=== PATIENT | female | born 1995 | race Caucasian/White ===

== ENCOUNTER 2017-11-04 08:13 | Emergency (ER) | payer BC ==
[2017-11-04 08:24] VITALS: RESP 16
[2017-11-04 09:10] LABS: Appearance,Urine Cloudy (Clear); Bacteria,Urine Rare /hpf; Bilirubin,Urine 1+ (Negative); Blood,Urine Trace (Negative); Color,Urine Yellow; Glucose,Urine (UA) Negative (Negative); Ketones,Urine 4+ (Negative); Leukocyte Esterase,Urine Large (Negative); Mucus,Urine Many /hpf; Nitrite,Urine Negative (Negative); PH, Urine 6.5 (5.0-8.0); Protein,Urine 1+ (Negative); RBC,Urine 5 /hpf (0-5); Specific Gravity,Urine 1.031 (1.001-1.035); Squamous Epithelial Cell,Urine 7 /hpf (0-4); WBC,Urine 7 /hpf (0-5)
--- NOTE | 2017-11-04 09:34 | ED ---
Abdominal Pain HPI - General Chief Complaint: Abdominal Pain Stated Complaint: Female Time Seen by Provider: 11/04/17 08:30 Source: patient, RN notes reviewed Mode of arrival: ambulatory Limitations: no limitations - History of Present Illness Initial Comments: This a 22-year-old female presents emergency Department chief complaint of dysuria and concerns of IUD displacement Patient states that she was having sexual course for nights ago states that she developed some discomfort and states that she is concerned that her IUD might have moved. She complains of left lower quadrant abdominal pain. Denies any rectal bleeding, melena, or constipation this time. Patient states she did have diarrhea the other day she did have some nausea vomiting but the vomiting. States that she is able tolerate oral intake at this time. Patient denies any known fever states that she had some chills but had resolved. Patient denies any chest pain, shortness breath, upper abdominal pain, headache or dizziness. No sick contacts. - Related Data Previous Rx's Medication Instructions Recorded Ciprofloxacin HCl [Cipro] 500 mg PO Q12HR #14 tablet 11/04/17 Ibuprofen [Motrin] 600 mg PO Q8HR PRN #30 tab 11/04/17 Ondansetron Odt [Zofran Odt] 4 mg PO Q8HR PRN #10 tab 11/04/17 Allergies Allergy/AdvReac Type Severity Reaction Status Date / Time No Known Allergies Allergy Verified 11/04/17 08:24 Review of Systems ROS Statement: Those systems with pertinent positive or pertinent negative responses have been documented in the HPI. ROS Other: All systems not noted in ROS Statement are negative. Past Medical History Past Medical History: No Reported History History of Any Multi-Drug Resistant Organisms: None Reported Past Surgical History: No Surgical Hx Reported Past Psychological History: No Psychological Hx Reported Smoking Status: Current every day smoker Past Alcohol Use History: None Reported Past Drug Use History: None Reported General Exam Limitations: no limitations General appearance: alert, in no apparent distress Head exam: Present: atraumatic, normocephalic, normal inspection Eye exam: Present: normal appearance, PERRL, EOMI. Absent: scleral icterus, conjunctival injection, periorbital swelling Respiratory exam: Present: normal lung sounds bilaterally. Absent: respiratory distress, wheezes, rales, rhonchi, stridor Cardiovascular Exam: Present: regular rate, normal rhythm, normal heart sounds. Absent: systolic murmur, diastolic murmur, rubs, gallop, clicks GI/Abdominal exam: Present: soft, tenderness (Mild left lower quadrant, suprapubic tenderness), normal bowel sounds. Absent: distended, guarding, rebound, rigid Back exam: Absent: CVA tenderness (R), CVA tenderness (L) Skin exam: Present: warm, dry, intact, normal color. Absent: rash Course Vital Signs 11/04/17 08:22 Temperature 98.4 F Pulse Rate 100 Respiratory 16 Rate Blood Pressure 116/60 O2 Sat by Pulse 99 Oximetry Medical Decision Making - Medical Decision Making 22-year-old female presented for pelvic pain. Patient concerned that her IUD removed. All son confirms placement of IUD. Patient has bacteria, mucus and leukocytes. Patient treated for urinary tract infection. She does have 4+ ketones though she is orally hydrated in the room with no difficulty. Patient will be discharged with antiemetics if needed. - Lab Data Lab Results 11/04/17 11/04/17 Range/Units 08:48 08:48 Urine Color Yellow Urine Appearance Cloudy H (Clear) Urine pH 6.5 (5.0-8.0) Ur Specific [place] 1.031 (1.001-1.035) Urine Protein 1+ H (Negative) Urine Glucose (UA) Negative (Negative) Urine Ketones 4+ H (Negative) Urine Blood Trace H (Negative) Urine Nitrite Negative (Negative) Urine Bilirubin 1+ H (Negative) Urine Urobilinogen 6.0 (<2.0) mg/dL Ur Leukocyte Esterase Large H (Negative) Urine RBC 5 (0-5) /hpf Urine WBC 7 H (0-5) /hpf Ur Squamous Epith Cells 7 H (0-4) /hpf Urine Bacteria Rare H (None) /hpf Urine Mucus Many H (None) /hpf Urine HCG, Qual Not Detected (Not Detectd) Disposition Clinical Impression: UTI (urinary tract infection), Pelvic pain, Nausea & vomiting Disposition: HOME SELF-CARE Condition: Stable Instructions: Urinary Tract Infection in Women (ED) Additional Instructions: Please return to the Emergency Department if symptoms worsen or any other concerns. Prescriptions: Ciprofloxacin HCl [Cipro] 500 mg PO Q12HR #14 tablet Ibuprofen [Motrin] 600 mg PO Q8HR PRN #30 tab PRN Reason: Pain Ondansetron Odt [Zofran Odt] 4 mg PO Q8HR PRN #10 tab PRN Reason: Nausea Is patient prescribed a controlled substance at d/c from ED?: No Referrals: Gale Buchanan MD [Primary Care Provider] - 1-2 days Time of Disposition: 09:51
--- NOTE | 2017-11-04 09:42 | US ---
EXAMINATION TYPE: US pelvis complete transvag DATE OF EXAM: 11/04/2017 COMPARISON: Previous study dated 10/13/2009. CLINICAL HISTORY: Pain. Intermittent pelvic pain x 4 days, N/V x 2 days, patient has IUD, 0 TECHNIQUE: Transvaginal ER study. Date of LMP: 10/26/2017 EXAM MEASUREMENTS: Uterus: 8.2 x 3.8 x 5.2 cm Endometrial Stripe: 0.5 cm Right Ovary: 3.7 x 2.7 x 2.1 cm Left Ovary: 4.3 x 2.2 x 2.6 cm 1. Uterus: anteverted, wnl 2. Endometrium: wnl for patient's LMP, IUD appears in place 3. Right Ovary: multiple follicles 4. Left Ovary: multiple follicles Spectral, color and waveform doppler imaging shows good arterial and venous flow within the ovaries ; there is no evidence for ovarian torsion. 5. Bilateral Adnexa: wnl 6. Posterior cul-de-sac: wnl IMPRESSION: NORMAL PELVIC ULTRASOUND.
[2017-11-04 10:08] VITALS: BP 112/53; PULSE 89; TEMP 98.6
== END 2017-11-04 10:08 | disposition home or self-care (01) ==
LOC: EC 08:13
DX: N39.0 Urinary tract infection, site not specified (principal); R11.2 Nausea with vomiting, unspecified; F17.200 Nicotine dependence, unspecified, uncomplicated
CPT/HCPCS: 76830; 81001; 81025; 87086; 93975; 99284

== ENCOUNTER 2019-03-15 20:40 | Emergency (ER) | payer BC ==
[2019-03-15 21:15] VITALS: RESP 18
[2019-03-15 22:04] LABS: Glucose,Whole Blood 103 mg/dL (75-99)
[2019-03-15] MEDS ORDERED: SODIUM CHLORIDE 0.9% 1,000 ML IV STA (23:00)
[2019-03-15 23:25] LABS: Basophils # (A) 0.1 k/uL (0-0.2); Basophils % (A) 1 %; Eosinophils # (A) 0.4 k/uL (0-0.7); Eosinophils % (A) 3 %; HCT 40.7 % (34.0-46.0); HGB 13.7 gm/dL (11.4-16.0); Lymphocytes # (A) 3.4 k/uL (1.0-4.8); Lymphocytes % (A) 27 %; MCH 30.2 pg (25.0-35.0); MCHC 33.8 g/dL (31.0-37.0); MCV 89.4 fL (80.0-100.0); Mean Platelet Volume 7.8; Monocytes # (A) 0.7 k/uL (0-1.0); Monocytes % (A) 5 %; Neutrophils # (A) 7.8 k/uL (1.3-7.7); Neutrophils % (A) 62 %; Platelet Count 330 k/uL (150-450); RBC 4.55 m/uL (3.80-5.40); RDW 13.2 % (11.5-15.5); WBC 12.6 k/uL (3.8-10.6)
[2019-03-15 23:26] LABS: Appearance,Urine Clear (Clear); Bilirubin,Urine Negative (Negative); Blood,Urine Negative (Negative); Color,Urine Yellow; Glucose,Urine (UA) Negative (Negative); Ketones,Urine Negative (Negative); Leukocyte Esterase,Urine Negative (Negative); Nitrite,Urine Negative (Negative); PH, Urine 5.5 (5.0-8.0); Protein,Urine Trace (Negative)
--- NOTE | 2019-03-15 23:45 | CT ---
EXAMINATION TYPE: CT brain wo con DATE OF EXAM: 03/15/2019 COMPARISON: None HISTORY: possible seizure CT DLP: 1090.4 mGycm. Automated Exposure Control for Dose Reduction was Utilized. TECHNIQUE: CT scan of the head is performed without contrast. FINDINGS: Ventricles and sulci appear normal. There is no mass effect nor midline shift. There is no sign of intracranial hemorrhage. Calvarium is intact. There is no sign of cerebral edema. IMPRESSION: Negative CT scan of the brain.
[2019-03-15 23:49] LABS: Amphetamine Screen,Urine Not Detected (NotDetected); Barbiturate Screen,Urine Not Detected (NotDetected); Benzodiazepines Screen,Urine Not Detected (NotDetected); Cocaine Screen,Urine Not Detected (NotDetected); Methadone Screen, Urine Not Detected (NotDetected); Opiate Screen,Urine Not Detected (NotDetected); Oxycodone Screen, Urine Not Detected (NotDetected); Phencyclidine Screen,Urine Not Detected (NotDetected); Tricyclic Antidepressant,Urine Not Detected (NotDetected); Urn Cannabinoid Scrn Detected (NotDetected)
[2019-03-16 00:14] LABS: ALT 14 U/L (9-52); AST 27 U/L (14-36); African American GFR (CKD) >90 (>60 ml/min/1.73 sqM); Albumin 4.2 g/dL (3.5-5.0); Alcohol <10 mg/dL; Alkaline Phosphatase 48 U/L (38-126); Anion Gap 13 mmol/L; Blood Urea Nitrogen 17 mg/dL (7-17); Calcium 9.1 mg/dL (8.4-10.2); Carbon Dioxide 24 mmol/L (22-30); Chloride 101 mmol/L (98-107); Creatine Kinase 72 U/L (30-135); Glucose 100 mg/dL (74-99); Potassium 4.1 mmol/L (3.5-5.1); Sodium 138 mmol/L (137-145); Total Bilirubin 0.3 mg/dL (0.2-1.3); Total Protein 7.2 g/dL (6.3-8.2)
--- NOTE | 2019-03-16 01:04 | ED ---
General Adult HPI - General Chief complaint: Seizure Stated complaint: Poss Seizure Source: patient Mode of arrival: ambulatory Limitations: no limitations - History of Present Illness Initial comments: The patient is a 23-year-old female with no past medical history who presents emergency Department with possible seizure-like activity earlier today. The patient states that she was with a friend. She reports that she started feeling "funny". Friend then reports that her eyes rolled back in her head and she became unresponsive. She had full tonic-clonic shaking. This lasted for approximately 2 minutes. Incident happened at 2:45 PM. The patient was then somewhat confused returned to her normal baseline fairly quickly. The patient denies having headaches or visual changes. There is no confusion or slurred speech from the patient. She denies any chest pain, chest palpitations or shortness of breath. She denies a possibility been . Has had no abdominal pain or changes in her bowel or bladder habits. There is no incontinence. The patient did not bite her tongue. No recent blunt head trauma or chiropractic manipulations. The patient did report that when she came to she and so he had an episode of vomiting. Since then she has been able to hold down her food. No report of any neck pain or stiffness. No fevers or chills. EMS was called and proceeded to the front house however the patient then ended up calling back and calling them off. She then went to her house and fell asleep. When she awoke she did feel that it was in her best interest to get evaluated even though she is a symptomatic at this time. No history of seizures in the past. There are no other alleviating, Perceptin or modifying factors - Related Data Previous Rx's Medication Instructions Recorded Ibuprofen [Motrin] 600 mg PO Q8HR PRN #30 tab 11/04/17 Allergies Allergy/AdvReac Type Severity Reaction Status Date / Time No Known Allergies Allergy Verified 03/15/19 22:13 Review of Systems ROS Statement: Those systems with pertinent positive or pertinent negative responses have been documented in the HPI. ROS Other: All systems not noted in ROS Statement are negative. Past Medical History Past Medical History: No Reported History History of Any Multi-Drug Resistant Organisms: None Reported Past Surgical History: No Surgical Hx Reported Past Psychological History: No Psychological Hx Reported Smoking Status: Current every day smoker Past Alcohol Use History: Daily Past Drug Use History: Marijuana General Exam Limitations: no limitations Course Vital Signs 03/15/19 03/15/19 03/16/19 21:10 21:14 01:40 Temperature 98.1 F 98.1 F 98 F Pulse Rate 68 64 70 Respiratory 18 18 18 Rate Blood Pressure 105/59 125/60 116/69 O2 Sat by Pulse 99 100 97 Oximetry EKG Findings - EKG Comments: EKG Findings:: EKG demonstrates a sinus bradycardia with a ventricular rate of 52.. 152. QRS E4. QTC 422. There are no acute ST segment elevations or depr essions concerning for ischemic changes. No signs of Tcujn-Oqcugboeq-Oskyo or Brugada syndrome. Medical Decision Making - Medical Decision Making Upon arrival the patient is placed into room 18. She is hooked up to continuous pulse ox and cardiac monitoring. A thorough history and physical exam was performed. Peripheral IV was established. The patient was given a liter bolus of 0.9% normal saline. Laboratory studies were conducted the patient was sent for CT of her brain. Laboratory studies remarkable for white blood count of 12.6. Glucose is 103. Trace protein in the urine. Positive for THC. CT of the brain does not demonstrate any acute findings. These results are discussed the patient. She has had no further seizure-like activity while in the emergency room. I did discuss diagnosis, differential and treatment options. At this time the patient will be discharged home. She is to not work or drive until evaluated by her primary care physician. I informed her that because of the history she may have new onset seizures which will require an MRI and an EEG. I did provide her with follow-up information for Dr. Alamo. The patient has any new or worsening symptoms she should return to the emergency room. The patient was in agreement with the treatment plan and she was discharged home in stable condition - Lab Data Result diagrams: 03/15/19 22:19 03/15/19 22: Lab Results 03/15/19 03/15/19 03/15/19 Range/Units 22:02 22: 22: WBC 12.6 H (3.8-10.6) k/uL RBC 4.55 (3.80-5.40) m/uL Hgb 13.7 (11.4-16.0) gm/dL Hct 40.7 (34.0-46.0) % MCV 89.4 (80.0-100.0) fL MCH 30.2 (25.0-35.0) pg MCHC 33.8 (31.0-37.0) g/dL RDW 13.2 (11.5-15.5) % Plt Count 330 (150-450) k/uL Neutrophils % 62 % Lymphocytes % 27 % Monocytes % 5 % Eosinophils % 3 % Basophils % 1 % Neutrophils # 7.8 H (1.3-7.7) k/uL Lymphocytes # 3.4 (1.0-4.8) k/uL Monocytes # 0.7 (0-1.0) k/uL Eosinophils # 0.4 (0-0.7) k/uL Basophils # 0.1 (0-0.2) k/uL Sodium 138 (137-145) mmol/L Potassium 4.1 (3.5-5.1) mmol/L Chloride 101 (98-107) mmol/L Carbon Dioxide 24 (22-30) mmol/L Anion Gap 13 mmol/L BUN 17 (7-17) mg/dL Creatinine 0.67 (0.52-1.04) mg/dL Est GFR (CKD-EPI)AfAm >90 (>60 ml/min/1.73 sqM) Est GFR (CKD-EPI)NonAf >90 (>60 ml/min/1.73 sqM) Glucose 100 H (74-99) mg/dL POC Glucose (mg/dL) 103 H (75-99) mg/dL POC Glu Major Gifts Officer ID Desirae Deras Plasma Lactic Acid Luiz (0.7-2.0) mmol/L Calcium 9.1 (8.4-10.2) mg/dL Total Bilirubin 0.3 (0.2-1.3) mg/dL AST 27 (14-36) U/L ALT 14 (9-52) U/L Alkaline Phosphatase 48 (38-126) U/L Creatine Kinase 72 (30-135) U/L Total Protein 7.2 (6.3-8.2) g/dL Albumin 4.2 (3.5-5.0) g/dL Urine Color Urine Appearance (Clear) Urine pH (5.0-8.0) Ur Specific [place] (1.001-1.035) Urine Protein (Negative) Urine Glucose (UA) (Negative) Urine Ketones (Negative) Urine Blood (Negative) Urine Nitrite (Negative) Urine Bilirubin (Negative) Urine Urobilinogen (<2.0) mg/dL Ur Leukocyte Esterase (Negative) Urine HCG, Qual (Not Detectd) Urine Opiates Screen (NotDetected) Ur Oxycodone Screen (NotDetected) Urine Methadone Screen (NotDetected) Ur Propoxyphene Screen (NotDetected) Ur Barbiturates Screen (NotDetected) U Tricyclic Antidepress (NotDetected) Ur Phencyclidine Scrn (NotDetected) Ur Amphetamines Screen (NotDetected) U Methamphetamines Scrn (NotDetected) U Benzodiazepines Scrn (NotDetected) Urine Cocaine Screen (NotDetected) U Marijuana (THC) Screen (NotDetected) Serum Alcohol <10 mg/dL 03/15/19 03/15/19 03/15/19 Range/Units 22:19 23:10 23:10 WBC (3.8-10.6) k/uL RBC (3.80-5.40) m/uL Hgb (11.4-16.0) gm/dL Hct (34.0-46.0) % MCV (80.0-100.0) fL MCH (25.0-35.0) pg MCHC (31.0-37.0) g/dL RDW (11.5-15.5) % Plt Count (150-450) k/uL Neutrophils % % Lymphocytes % % Monocytes % % Eosinophils % % Basophils % % Neutrophils # (1.3-7.7) k/uL Lymphocytes # (1.0-4.8) k/uL Monocytes # (0-1.0) k/uL Eosinophils # (0-0.7) k/uL Basophils # (0-0.2) k/uL Sodium (137-145) mmol/L Potassium (3.5-5.1) mmol/L Chloride (98-107) mmol/L Carbon Dioxide (22-30) mmol/L Anion Gap mmol/L BUN (7-17) mg/dL Creatinine (0.52-1.04) mg/dL Est GFR (CKD-EPI)AfAm (>60 ml/min/1.73 sqM) Est GFR (CKD-EPI)NonAf (>60 ml/min/1.73 sqM) Glucose (74-99) mg/dL POC Glucose (mg/dL) (75-99) mg/dL POC Glu Major Gifts Officer ID Plasma Lactic Acid Luiz 1.6 (0.7-2.0) mmol/L Calcium (8.4-10.2) mg/dL Total Bilirubin (0.2-1.3) mg/dL AST (14-36) U/L ALT (9-52) U/L Alkaline Phosphatase (38-126) U/L Creatine Kinase (30-135) U/L Total Protein (6.3-8.2) g/dL Albumin (3.5-5.0) g/dL Urine Color Yellow Urine Appearance Clear (Clear) Urine pH 5.5 (5.0-8.0) Ur Specific [place] 1.030 (1.001-1.035) Urine Protein Trace H (Negative) Urine Glucose (UA) Negative (Negative) Urine Ketones Negative (Negative) Urine Blood Negative (Negative) Urine Nitrite Negative (Negative) Urine Bilirubin Negative (Negative) Urine Urobilinogen 2.0 (<2.0) mg/dL Ur Leukocyte Esterase Negative (Negative) Urine HCG, Qual Not Detected (Not Detectd) Urine Opiates Screen Not Detected (NotDetected) Ur Oxycodone Screen Not Detected (NotDetected) Urine Methadone Screen Not Detected (NotDetected) Ur Propoxyphene Screen Not Detected (NotDetected) Ur Barbiturates Screen Not Detected (NotDetected) U Tricyclic Antidepress Not Detected (NotDetected) Ur Phencyclidine Scrn Not Detected (NotDetected) Ur Amphetamines Screen Not Detected (NotDetected) U Methamphetamines Scrn Not Detected (NotDetected) U Benzodiazepines Scrn Not Detected (NotDetected) Urine Cocaine Screen Not Detected (NotDetected) U Marijuana (THC) Screen Detected H (NotDetected) Serum Alcohol mg/dL Disposition Clinical Impression: Seizure Disposition: HOME SELF-CARE Condition: Stable Instructions (If sedation given, give patient instructions): New-Onset Seizure in Adults (ED) Additional Instructions: Please not drive or participate in any extreme activities/sports. You must follow-up with your primary care doctor for further evaluation. You may need to be evaluated by a neurologist and/or chipper feeder. Return to the emergency room for any new or worsening symptoms Is patient prescribed a controlled substance at d/c from ED?: No Referrals: None,Stated [Primary Care Provider] - 1-2 days Kareen Isaacs MD [STAFF PHYSICIAN] - 1-2 days Time of Disposition: 01:03
[2019-03-16 01:41] VITALS: BP 116/69; PULSE 70; TEMP 98
== END 2019-03-16 01:41 | disposition home or self-care (01) ==
LOC: EC 20:40
DX: R56.9 Unspecified convulsions (principal); Z32.02 Encounter for pregnancy test, result negative; F17.200 Nicotine dependence, unspecified, uncomplicated
CPT/HCPCS: 36415; 70450; 80053; 80306; 80320; 81003; 81025; 82550; 83605; 85025; 93005; 96360; 99285

== ENCOUNTER 2019-05-18 17:31 | Emergency (ER) | payer BC ==
--- NOTE | 2019-05-18 18:23 | ED ---
General Adult HPI - General Chief complaint: ENT Stated complaint: Throat Pain Time Seen by Provider: 05/18/19 17:43 Source: patient, RN notes reviewed, old records reviewed Mode of arrival: ambulatory Limitations: no limitations - History of Present Illness Initial comments: 23-year-old female patient presents to ED for chief complaint of submandibular lymphadenopathy, mildly sore throat. Patient reports this started yesterday. Denies any other complaints at this time. Systemic: Pt denies fatigue, fever/chills, rash. Pt denies weakness, night sweat s, weight loss. Neuro: Pt denies headache, visual disturbances, syncope or pre-syncope. HEENT: Pt denies ocular discharge or irritation, otalgia, rhinorrhea. Cardiopulmonary: Pt denies chest pain, SOB, heart palpitations, dyspnea on exertion. Abdominal/GI: Pt denies abdominal pain, n/v/d. : Pt denies dysuria, burning w/ urination, frequency/urgency. Denies new onset urinary or bowel incontinence. MSK: Pt denies myalgia, loss of strength or function in extremities. Neuro: Pt denies new onset weakness, paresthesias. - Related Data Previous Rx's Medication Instructions Recorded Ibuprofen [Motrin] 600 mg PO Q8HR PRN #30 tab 11/04/17 Cephalexin [Keflex] 500 mg PO Q6HR 7 Days #28 cap 05/18/19 Allergies Allergy/AdvReac Type Severity Reaction Status Date / Time No Known Allergies Allergy Verified 03/15/19 22:13 Review of Systems ROS Statement: Those systems with pertinent positive or pertinent negative responses have been documented in the HPI. ROS Other: All systems not noted in ROS Statement are negative. Past Medical History Past Medical History: No Reported History History of Any Multi-Drug Resistant Organisms: None Reported Past Surgical History: No Surgical Hx Reported Past Psychological History: No Psychological Hx Reported Smoking Status: Current every day smoker Past Alcohol Use History: Daily Past Drug Use History: Marijuana General Exam - General Exam Comments Initial Comments: Constitutional: NAD, AOX3, Pt has pleasant affect. HEENT: NC/AT, trachea midline, neck supple, tender submandibular lymphadenopathy noted, no skin changes externally.. Posterior pharynx non erythematous, without exudates. External ears appear normal, without discharge. Mucous membranes moist. Eyes PERRLA, EOM intact. There is no scleral icterus. No pallor noted. Cardiopulmonary: RRR, no murmurs, rubs or gallops, no JVD noted. Lungs CTAB in anterior and posterior watts. No peripheral edema. Abdominal exam: Abdomen soft and non-distended. Abdomen non-tender to palpation in all 4 quadrants. Bowel sounds active in LLQ. No hepatosplenomegaly. No ecchymosis Neuro: CN II-XII grossly intact. No nuchal rigidity. No raccon eyes, no lewis sign, no hemotympanum. No cervical spinal tenderness. MSK: No posterior calf tenderness bilaterally, homans sign negative bilaterally. Posterior tibialis and radial pulse +2 bilaterally. Sensation intact in upper and lower extremities. Full active ROM in upper and lower extremities, 5/5 stregnth. Limitations: no limitations Course Vital Signs 05/18/19 17:33 Temperature 98.0 F Pulse Rate 94 Respiratory 18 Rate Blood Pressure 120/80 O2 Sat by Pulse 98 Oximetry Medical Decision Making - Medical Decision Making 33-year-old female patient presents to ED for chief complaint of some and really lymphadenopathy. Reports this started last night. Patient was worse mild sore throat. Physical exam displayed some vertebral lymphadenopathy. Posterior pharynx non-erythematous. The Hardeman negative. Heterophile negative. Patient will be treated with antibiotics for possible lymphadenitis. We'll have close outpatient follow-up to ensure resolution of inflamed lymph nodes. Will turn your condition worsens. Case discussed with Dr. Milligan. - Lab Data Lab Results 05/18/19 05/18/19 Range/Units 17:57 18:45 Heterophile Antibody Negative (Negative) Group A Strep Rapid Negative (Negative) Disposition Clinical Impression: Lymphadenitis Disposition: HOME SELF-CARE Condition: Stable Instructions (If sedation given, give patient instructions): Adenitis (ED) Additional Instructions: Follow-up with primary care provider tomorrow. Take antibiotics as directed. Return to ER if condition worsens. Prescriptions: Cephalexin [Keflex] 500 mg PO Q6HR 7 Days #28 cap Is patient prescribed a controlled substance at d/c from ED?: No Referrals: None,Stated [Primary Care Provider] - 1-2 days [facility] [NON-STAFF] - 1-2 days
[2019-05-18] MEDS ORDERED: CEPHALEXIN 500MG STARTER PACK 4 CAP BTL PO STA (19:35)
[2019-05-18] MEDS ORDERED: CEPHALEXIN 500 MG CAP PO STA (19:35)
[2019-05-18 19:50] VITALS: BP 116/74; PULSE 91; RESP 16; TEMP 98.1
== END 2019-05-18 19:49 | disposition home or self-care (01) ==
LOC: EC 17:31
DX: I88.9 Nonspecific lymphadenitis, unspecified (principal); F17.200 Nicotine dependence, unspecified, uncomplicated
CPT/HCPCS: 36415; 86308; 87081; 87430; 99283

== ENCOUNTER → 2020-05-07 | Outpatient (CLI) | payer BC ==
[2020-05-07 08:49] LABS: HCT 31.4 % (34.0-46.0); HGB 10.5 gm/dL (11.4-16.0); MCH 29.5 pg (25.0-35.0); MCHC 33.4 g/dL (31.0-37.0); MCV 88.4 fL (80.0-100.0); Platelet Count 236 k/uL (150-450); RBC 3.55 m/uL (3.80-5.40); RDW 12.6 % (11.5-15.5); WBC 11.3 k/uL (3.8-10.6)
== END | disposition home or self-care (01) ==
LOC: LABWHC1 07:09
PROVIDERS: ATTEND Obstetrics & Gynecology
DX: Z34.02 Encounter for supervision of normal first pregnancy, second trimester (principal); Z3A.00 Weeks of gestation of pregnancy not specified
CPT/HCPCS: 36415; 82950; 85027

== ENCOUNTER 2020-07-16 06:00 | Inpatient (IN) | payer BC, OTHER ==
[2020-07-16] MEDS ORDERED: LIDOCAINE 0.5% (PF) 5 MG/ML (50 ML SDV) SQ PRN (06:28)
[2020-07-16] MEDS ORDERED: METHYLERGONOVINE 0.2 MG/ML 1 ML AMP IM PRN (06:28)
[2020-07-16] MEDS ORDERED: AMPICILLIN 2,000 MG in SODIUM CHLORIDE 0.9% 100 ML IVPB STA (06:28)
[2020-07-16] MEDS ORDERED: CARBOPROST TROMETHAMINE 250 MCG/ML 1 ML AMP IM PRN (06:28)
[2020-07-16] MEDS ORDERED: OXYTOCIN 10 UNIT/ML 1 ML VIAL IM PRN (06:28)
[2020-07-16] MEDS ORDERED: TERBUTALINE 1 MG/ML VIAL SQ PRN (06:28)
[2020-07-16] MEDS ORDERED: OXYTOCIN 30 UNITS/500 ML NS 30 UNIT in SALINE 1 500ML.BAG IV SCH ×2 (06:30→20:15)
[2020-07-16] MEDS: LACTATED RINGERS 1,000 ML IV SCH ×3 (07:03→14:57)
[2020-07-16 07:23] LABS: Basophils # (A) 0.1 k/uL (0-0.2); Basophils % (A) 1 %; Eosinophils # (A) 0.2 k/uL (0-0.7); Eosinophils % (A) 2 %; HCT 35.1 % (34.0-46.0); HGB 11.7 gm/dL (11.4-16.0); Lymphocytes # (A) 1.9 k/uL (1.0-4.8); Lymphocytes % (A) 18 %; MCHC 33.4 g/dL (31.0-37.0); MCV 83.7 fL (80.0-100.0); Mean Platelet Volume 11.9; Monocytes # (A) 0.5 k/uL (0-1.0); Monocytes % (A) 5 %; Neutrophils % (A) 75 %; Platelet Count 155 k/uL (150-450); RBC 4.19 m/uL (3.80-5.40); WBC 10.8 k/uL (3.8-10.6)
[2020-07-16 07:55] LABS: Large Platelets Present
--- NOTE | 2020-07-16 08:20 | P.HPOB ---
History of Present Illness H&P Date: 07/16/20 Chief Complaint: Induction of labor 24-year-old presents at 39 weeks for induction of labor. Her cervix is 3 cm dilated, 80% effaced, and -2 station. She is yvon irregularly. heart tones 135 with moderate variability and reactive. Review of Systems All systems: negative Constitutional: Denies chills, Denies fever Eyes: denies blurred vision, denies pain Ears, nose, mouth and throat: Denies headache, Denies sore throat Cardiovascular: Denies chest pain, Denies shortness of breath Respiratory: Denies cough Gastrointestinal: Denies abdominal pain, Denies diarrhea, Denies nausea, Denies vomiting Genitourinary: Denies dysuria, Denies hematuria Musculoskeletal: Denies myalgias Integumentary: Denies pruritus, Denies rash Neurological: Denies numbness, Denies weakness Psychiatric: Denies anxiety, Denies depression Endocrine: Denies fatigue, Denies weight change Past Medical History Past Medical History: Asthma Additional Past Medical History / Comment(s): Obstetric history: This is her first and she's had care with me since the first trimester. Blood type is O+, antibodies negative, rubella immune, hepatitis B negative, RPR nonreactive, toxoplasma negative. History of Any Multi-Drug Resistant Organisms: None Reported Past Surgical History: No Surgical Hx Reported Past Anesthesia/Blood Transfusion Reactions: No Reported Reaction Past Psychological History: ADD/ADHD Smoking Status: Former smoker Past Alcohol Use History: None Reported Past Drug Use History: Marijuana - Past Family History Father Family Medical History: No Reported History Medications and Allergies Home Medications Medication Instructions Recorded Confirmed Type No Known Home Medications 07/16/20 07/16/20 History Allergies Allergy/AdvReac Type Severity Reaction Status Date / Time No Known Allergies Allergy Verified 07/16/20 06:26 Exam Osteopathic Statement: *. No significant issues noted on an osteopathic structural exam other than those noted in the History and Physical/Consult. Vital Signs Temp Pulse Resp BP Pulse Ox 07/16/20 06:26 98.7 F 110 H 16 135/86 97 Intake and Output 07/15/20 07/16/20 07/16/20 22:59 06:59 14:59 Other: Weight 86.183 kg Heart: Regular rate and rhythm Lungs: Clear to auscultation bilaterally Abdomen: Soft, nontender Extremities: Negative Homans sign Results Result Diagrams: 07/16/20 07:00 Abnormal Lab Results - Last 24 Hours (Table) 07/16/20 Range/Units 07:00 WBC 10.8 H (3.8-10.6) k/uL Neutrophils # 8.0 H (1.3-7.7) k/uL Assessment and Plan (1) Encounter for elective induction of labor Current Visit: Yes Status: Acute Code(s): Z34.90 - ENCNTR FOR SUPRVSN OF NORMAL , UNSP, UNSP TRIMESTER SNOMED Code(s): 698246591 Plan: 1. Amniotomy and Pitocin for induction of labor 2. Anticipate normal vaginal delivery
[2020-07-16] MEDS ORDERED: ROPIVACAINE 5MG/ML 20ML VIAL ONE (10:34)
[2020-07-16] MEDS ORDERED: fentaNYL (PF) 50 MCG/ML 5 ML AMP ONE (10:34)
[2020-07-16] MEDS ORDERED: SODIUM CHLORIDE 0.9% 100 ML BAG ONE (10:34)
[2020-07-16] MEDS: AMPICILLIN 1,000 MG in SODIUM CHLORIDE 0.9% 50 ML IVPB SCH ×3 (11:06→22:20)
--- NOTE | 2020-07-16 18:47 | P.PROBDLV ---
Vaginal Delivery Note - . Vaginal Delivery Note: 24-year-old presents at 39 weeks for induction of labor. Her cervix is 3 cm dilated, 80% effaced, and -2 station. She is yvon irregularly. heart tones 135 with moderate variability and reactive. Pitocin was started. Amniotomy performed at 7:56 AM and clear fluid noted. She was started on in the Vioxx for GBS prophylaxis. When she was uncomfortable she did get an epidural around 10:45 AM. She progressed slowly throughout the day and was completely dilated by 1735. She pushed, and delivered a viable male infant over intact perineum under epidural anesthesia at 1827. Head delivered ISABELLA, nuchal cord 1 easily reduced, anterior shoulder attempted to be delivered with gentle downward guidance, however, the shoulder was not moving with maternal effort. Shoulder dystocia was identified. She was placed in Aldo position, and I attempted to deliver the posterior shoulder. The shoulder was not moving, would screw maneuver was moved used and I attempted to deliver the posterior shoulder again. The posterior shoulder delivered without difficulty followed by the anterior shoulder and the rest of the body. This total process lasted less than 30 seconds. Nose and mouth bulb suctioned, cord clamped and cut, infant placed on mother's abdomen. Apgars 7, 9, weight 7 lbs. 14 oz. Placenta delivered spontaneously, intact with three-vessel cord at 1830. Vagina, cervix, perineum inspected. Right labial laceration was repaired with 3-0 Vicryl. Estimated blood loss 50 mL. Mother and baby in stable condition.
[2020-07-16] MEDS ORDERED: diphenhydrAMINE 50 MG CAP PO PRN (20:13)
[2020-07-16] MEDS ORDERED: ZOLPIDEM 5 MG TAB PO PRN (20:13)
[2020-07-16] MEDS ORDERED: SIMETHICONE 80 MG CHEWABLE PO PRN (20:13)
[2020-07-16] MEDS ORDERED: diphenhydrAMINE 25 MG CAP PO PRN (20:13)
[2020-07-16] MEDS ORDERED: HYDROCORTISONE 2.5% RECTAL CREAM 30 GM TUBE RECTAL PRN (20:13)
[2020-07-16] MEDS ORDERED: LANOLIN CREAM 5 GM TUBE TOPICAL PRN (20:13)
[2020-07-16] MEDS ORDERED: BENZOCAINE/MENTHOL SPRAY 1 GM/SPRAY AEROSOL TOPICAL PRN (20:13)
[2020-07-16] MEDS: IBUPROFEN 600 MG TAB PO PRN (20:39)
[2020-07-17] MEDS: IBUPROFEN 600 MG TAB PO PRN ×2 (03:59→20:08)
[2020-07-17] MEDS: ACETAMINOPHEN TAB 325 MG TAB PO PRN ×2 (08:20→17:10)
--- NOTE | 2020-07-17 08:29 | P.PNOBGVD ---
Subjective - Subjective Principal diagnosis: Status post normal vaginal delivery day #1 Interval history: Patient seen and examined. Denies nausea, vomiting, chest pain, shortness of breath or any calf pain. Patient reports: Reports appetite normal, Reports voiding normally, Reports pain well controlled, Reports ambulating normally [place]: doing well Objective - Latest Vital Signs Latest vital signs: Vital Signs Temp Pulse Resp BP Pulse Ox 07/17/20 04:00 98.0 F 90 18 121/68 98 07/17/20 00:00 97.6 F 95 18 127/77 07/16/20 20:42 98.6 F 94 16 131/78 07/16/20 20:12 98 F 91 16 146/83 07/16/20 20:00 98 F 91 16 146/83 07/16/20 19:42 100 16 155/74 07/16/20 19:27 99 16 146/74 07/16/20 19:12 98 16 140/60 07/16/20 18:57 98 16 139/68 07/16/20 18:42 97.3 F L 103 H 16 159/71 Intake and Output 07/16/20 07/17/20 07/17/20 22:59 06:59 14:59 Intake Total 2178.367 1999 Balance 2178.367 1999 Intake: IV 1999 1999 Intake, IV Titration 178.367 Amount Oxytocin 30 Units/500 ml 178.367 Ns 30 unit In Saline 1 500ml.bag @ Per Protocol IV .Q0M [facility] Rx#:[id number] Other: # Voids 1 1 - Exam Lungs: bilateral: normal Chest: Normal S1, Normal S2 Extremities: Present: normal Abdomen: Present: normal appearance, soft Uterus: Present: normal, firm Assessment and Plan (1) Encounter for elective induction of labor Current Visit: Yes Status: Resolved Code(s): Z34.90 - ENCNTR FOR SUPRVSN OF NORMAL , UNSP, UNSP TRIMESTER SNOMED Code(s): 709260929 (2) Normal vaginal delivery Current Visit: Yes Status: Acute Code(s): O80 - ENCOUNTER FOR FULL-TERM UNCOMPLICATED DELIVERY SNOMED Code(s): 91846234 Plan: 1. Continue care
[2020-07-17 09:26] LABS: Basophils % (A) 0 %; Eosinophils # (A) 0.2 k/uL (0-0.7); Eosinophils % (A) 1 %; HCT 30.8 % (34.0-46.0); HGB 10.7 gm/dL (11.4-16.0); Lymphocytes # (A) 1.8 k/uL (1.0-4.8); Lymphocytes % (A) 12 %; MCH 29.1 pg (25.0-35.0); MCHC 34.6 g/dL (31.0-37.0); MCV 84.2 fL (80.0-100.0); Mean Platelet Volume 11.4; Monocytes # (A) 0.8 k/uL (0-1.0); Monocytes % (A) 5 %; Neutrophils # (A) 12.8 k/uL (1.3-7.7); Neutrophils % (A) 81 %; Platelet Count 146 k/uL (150-450); RBC 3.67 m/uL (3.80-5.40); RDW 14.1 % (11.5-15.5); WBC 15.7 k/uL (3.8-10.6)
[2020-07-17] MEDS: SENNOSIDES-DOCUSATE SODIUM 1 EACH TAB PO SCH ×2 (13:40→20:09)
[2020-07-18] MEDS: IBUPROFEN 600 MG TAB PO PRN (07:15)
[2020-07-18 08:41] VITALS: BP 101/64; PULSE 94; RESP 18; TEMP 98.1
--- NOTE | 2020-07-18 09:26 | P.DS ---
Providers Date of admission: 07/16/20 06:09 Expected date of discharge: 07/18/20 Attending physician: Alka Landeros Primary care physician: Stated None - Discharge Diagnosis(es) (1) Encounter for elective induction of labor Current Visit: Yes Status: Resolved (2) Normal vaginal delivery Current Visit: Yes Status: Acute Hospital Course: Patient presented for induction of labor. She underwent normal vaginal delivery. Her course uncomplicated. She denies nausea, vomiting, chest pain, shortness of breath or any calf pain. She'll be discharged home day #1 in stable condition to follow-up with me in 6 weeks. Plan - Discharge Summary New Discharge Prescriptions: New Ibuprofen [Motrin] 600 mg PO Q6HR PRN #30 tab PRN Reason: Mild Pain Or Fever >= 100.5 Discharge Medication List Ibuprofen [Motrin] 600 mg PO Q6HR PRN #30 tab 07/18/20 [Rx] Follow up Appointment(s)/Referral(s): Alka Landeros DO [Doctor of Osteopathic Medicine] - 6 Weeks Discharge Disposition: HOME SELF-CARE
[2020-07-18] MEDS: SENNOSIDES-DOCUSATE SODIUM 1 EACH TAB PO SCH (17:15)
== END 2020-07-18 15:30 | disposition home or self-care (01) | DRG 807 ==
LOC: 4FBP 06:09
PROVIDERS: ADMIT Obstetrics & Gynecology; ATTEND Obstetrics & Gynecology
PROC: 10E0XZZ Delivery of Products of Conception, External Approach (ICD-10-PCS; principal; 2020-07-16)
PROC: 0UQMXZZ Repair Vulva, External Approach (ICD-10-PCS; principal; 2020-07-16)
PROC: 10907ZC Drainage of Amniotic Fluid, Therapeutic from Products of Conception, Via Natural or Artificial Opening (ICD-10-PCS; principal; 2020-07-16)
PROC: 3E0R3NZ Introduction of Analgesics, Hypnotics, Sedatives into Spinal Canal, Percutaneous Approach (ICD-10-PCS; principal; 2020-07-16)
PROC: 00HU33Z Insertion of Infusion Device into Spinal Canal, Percutaneous Approach (ICD-10-PCS; principal; 2020-07-16)
PROC: 3E033VJ Introduction of Other Hormone into Peripheral Vein, Percutaneous Approach (ICD-10-PCS; principal; 2020-07-16)
DX: O69.81X0 Labor and delivery complicated by cord around neck, without compression, not applicable or unspecified (principal); Z37.0 Single live birth; O66.0 Obstructed labor due to shoulder dystocia; Z3A.39 39 weeks gestation of pregnancy; Z87.891 Personal history of nicotine dependence; O70.0 First degree perineal laceration during delivery; O76 Abnormality in fetal heart rate and rhythm complicating labor and delivery; Z87.09 Personal history of other diseases of the respiratory system; Z86.59 Personal history of other mental and behavioral disorders
CPT/HCPCS: 85025; 86850; 86900; 86901

== ENCOUNTER 2022-02-03 09:19 | Emergency (ER) | payer BC, OTHER ==
[2022-02-03 09:37] VITALS: TEMP 98
[2022-02-03] MEDS ORDERED: ONDANSETRON 4 MG/2 ML VIAL IVP STA (09:53)
[2022-02-03] MEDS ORDERED: SODIUM CHLORIDE 0.9% 2,000 ML IV STA (09:53)
[2022-02-03 10:10] LABS: Basophils # (A) 0.1 k/uL (0-0.2); Basophils % (A) 0 %; Eosinophils % (A) 0 %; HCT 39.7 % (34.0-46.0); HGB 13.4 gm/dL (11.4-16.0); Lymphocytes # (A) 1.7 k/uL (1.0-4.8); Lymphocytes % (A) 15 %; MCH 30.6 pg (25.0-35.0); MCHC 33.8 g/dL (31.0-37.0); MCV 90.6 fL (80.0-100.0); Mean Platelet Volume 8.7; Monocytes # (A) 0.6 k/uL (0-1.0); Monocytes % (A) 5 %; Neutrophils % (A) 79 %; Platelet Count 308 k/uL (150-450); RBC 4.39 m/uL (3.80-5.40); RDW 11.8 % (11.5-15.5); WBC 11.4 k/uL (3.8-10.6)
--- NOTE | 2022-02-03 10:13 | ED ---
General Adult HPI - General Chief complaint: Nausea/Vomiting/Diarrhea Stated complaint: Vomiting-Preg not sure how far Time Seen by Provider: 02/03/22 09:29 Source: patient, RN notes reviewed Mode of arrival: ambulatory Limitations: no limitations - History of Present Illness Initial comments: This is a 26-year-old female presents emergency Department with chief complaint of nausea vomiting . Patient states that she is unsure how far along she is she took test in a week which was positive. Patient states she has no abdominal pain did have spotting last week. Patient denies any dysuria hematuria associated she is A0 states that she is feeling quite dehydrated. She did have nausea vomiting with her prior her TRAVEL PTA was Dr. Landeros. - Related Data Previous Rx's Medication Instructions Recorded Ondansetron Odt [Zofran Odt] 4 mg PO Q8HR PRN #10 tab 02/03/22 Allergies Allergy/AdvReac Type Severity Reaction Status Date / Time No Known Allergies Allergy Verified 02/03/22 10:11 Review of Systems ROS Statement: Those systems with pertinent positive or pertinent negative responses have been documented in the HPI. ROS Other: All systems not noted in ROS Statement are negative. Past Medical History Past Medical History: Asthma Additional Past Medical History / Comment(s): Obstetric history: This is her first and she's had care with me since the first trimester. Blood type is O+, antibodies negative, rubella immune, hepatitis B negative, RPR nonreactive, toxoplasma negative. History of Any Multi-Drug Resistant Organisms: None Reported Past Surgical History: No Surgical Hx Reported Past Anesthesia/Blood Transfusion Reactions: No Reported Reaction Past Psychological History: ADD/ADHD Smoking Status: Former smoker Past Alcohol Use History: None Reported Past Drug Use History: Marijuana - Past Family History Father Family Medical History: No Reported History General Exam Limitations: no limitations General appearance: alert, in no apparent distress Head exam: Present: atraumatic, normocephalic, normal inspection Neck exam: Present: normal inspection, full ROM. Absent: tenderness, meningismus, lymphadenopathy Respiratory exam: Present: normal lung sounds bilaterally. Absent: respiratory distress, wheezes, rales, rhonchi, stridor Cardiovascular Exam: Present: regular rate, normal rhythm, normal heart sounds. Absent: systolic murmur, diastolic murmur, rubs, gallop, clicks GI/Abdominal exam: Present: soft, normal bowel sounds. Absent: distended, tenderness, guarding, rebound, rigid Neurological exam: Present: alert, oriented X3, CN II-XII intact Skin exam: Present: warm, dry, intact, normal color. Absent: rash Course Vital Signs 02/03/22 09:34 Temperature 98.0 F Pulse Rate 77 Respiratory 16 Rate Blood Pressure 103/56 O2 Sat by Pulse 99 Oximetry Medical Decision Making - Medical Decision Making 26-year-old presented for nausea vomiting 4 plus ketones was given 2 L of fluids tolerating oral intake. Patient does have bilateral ultrasound 6 wee ks 4 days - Lab Data Result diagrams: 02/03/22 10:02/03/22 10:01 Lab Results 02/03/22 02/03/22 02/03/22 Range/Units 10:01 10:01 10:01 WBC 11.4 H (3.8-10.6) k/uL RBC 4.39 (3.80-5.40) m/uL Hgb 13.4 (11.4-16.0) gm/dL Hct 39.7 (34.0-46.0) % MCV 90.6 (80.0-100.0) fL MCH 30.6 (25.0-35.0) pg MCHC 33.8 (31.0-37.0) g/dL RDW 11.8 (11.5-15.5) % Plt Count 308 (150-450) k/uL MPV 8.7 Neutrophils % 79 % Lymphocytes % 15 % Monocytes % 5 % Eosinophils % 0 % Basophils % 0 % Neutrophils # 9.0 H (1.3-7.7) k/uL Lymphocytes # 1.7 (1.0-4.8) k/uL Monocytes # 0.6 (0-1.0) k/uL Eosinophils # 0.0 (0-0.7) k/uL Basophils # 0.1 (0-0.2) k/uL Sodium 135 L (137-145) mmol/L Potassium 3.6 (3.5-5.1) mmol/L Chloride 100 (98-107) mmol/L Carbon Dioxide 20 L (22-30) mmol/L Anion Gap 15 mmol/L BUN 7 (7-17) mg/dL Creatinine 0.57 (0.52-1.04) mg/dL Est GFR (CKD-EPI)AfAm >90 (>60 ml/min/1.73 sqM) Est GFR (CKD-EPI)NonAf >90 (>60 ml/min/1.73 sqM) Glucose 88 (74-99) mg/dL Calcium 9.1 (8.4-10.2) mg/dL Total Bilirubin 0.6 (0.2-1.3) mg/dL AST 20 (14-36) U/L ALT 14 (4-34) U/L Alkaline Phosphatase 41 (38-126) U/L Total Protein 7.5 (6.3-8.2) g/dL Albumin 4.6 (3.5-5.0) g/dL Lipase 75 (23-300) U/L Urine Color Yellow Urine Appearance Cloudy H (Clear) Urine pH 6.0 (5.0-8.0) Ur Specific [place] 1.030 (1.001-1.035) Urine Protein 1+ H (Negative) Urine Glucose (UA) Negative (Negative) Urine Ketones 4+ H (Negative) Urine Blood Negative (Negative) Urine Nitrite Negative (Negative) Urine Bilirubin 1+ H (Negative) Urine Urobilinogen 2.0 (<2.0) mg/dL Ur Leukocyte Esterase Moderate H (Negative) Urine RBC 5 (0-5) /hpf Urine WBC 5 (0-5) /hpf Ur Squamous Epith Cells 18 H (0-4) /hpf Urine Mucus Many H (None) /hpf Disposition Clinical Impression: Vomiting during , Dehydration Disposition: HOME SELF-CARE Condition: Stable Instructions (If sedation given, give patient instructions): Hyperemesis Gravidarum (ED), Nausea and Vomiting in (ED) Additional Instructions: Please return to the Emergency Department if symptoms worsen or any other concerns. Prescriptions: Ondansetron Odt [Zofran Odt] 4 mg PO Q8HR PRN #10 tab PRN Reason: Nausea Is patient prescribed a controlled substance at d/c from ED?: No Referrals: None,Stated [Primary Care Provider] - 1-2 days Time of Disposition: 11:45
[2022-02-03 10:20] LABS: ALT 14 U/L (4-34); AST 20 U/L (14-36); African American GFR (CKD) >90 (>60 ml/min/1.73 sqM); Albumin 4.6 g/dL (3.5-5.0); Alkaline Phosphatase 41 U/L (38-126); Anion Gap 15 mmol/L; Blood Urea Nitrogen 7 mg/dL (7-17); Calcium 9.1 mg/dL (8.4-10.2); Carbon Dioxide 20 mmol/L (22-30); Chloride 100 mmol/L (98-107); Glucose 88 mg/dL (74-99); Lipase 75 U/L (23-300); Non-African American GFR(CKD) >90 (>60 ml/min/1.73 sqM); Potassium 3.6 mmol/L (3.5-5.1); Sodium 135 mmol/L (137-145); Total Bilirubin 0.6 mg/dL (0.2-1.3); Total Protein 7.5 g/dL (6.3-8.2)
[2022-02-03 10:30] LABS: Appearance,Urine Cloudy (Clear); Bilirubin,Urine 1+ (Negative); Blood,Urine Negative (Negative); Color,Urine Yellow; Glucose,Urine (UA) Negative (Negative); Ketones,Urine 4+ (Negative); Leukocyte Esterase,Urine Moderate (Negative); Mucus,Urine Many /hpf; Nitrite,Urine Negative (Negative); Protein,Urine 1+ (Negative); RBC,Urine 5 /hpf (0-5); Squamous Epithelial Cell,Urine 18 /hpf (0-4); WBC,Urine 5 /hpf (0-5)
--- NOTE | 2022-02-03 10:50 | US ---
EXAMINATION TYPE: Transabdominal DATE OF EXAM: 02/03/2022 10:44 AM COMPARISON: NONE CLINICAL HISTORY: pain, early . N/V EXAM PERFORMED: Transabdominal (TA) EXAM MEASUREMENTS: GESTATIONAL AGE / DATING Physician Established: Not yet established Dates by LMP: (6 weeks/6 days) EDC: 09/23/2022 Dates by First Scan: No previous this is first scan Dates by Current Scan for: ( 6 weeks/4 days) EDC: 09/25/2022 MATERNAL ANATOMY Uterus: 9.1 x 6.0 x 7.9cm Right Ovary: 2.7 x 1.8 x 2.1cm Left Ovary: 3.2 x 1.9 x 2.5cm Post CDS / Adnexa: wnl Presence of free fluid: no Presence of corpus luteal cyst: not seen Presence of subchorionic bleed: no GESTATION / SURVEY CRL: 0.7cm (6 weeks/4 days) Yolk Sac (normal less than 6mm): 3.3mm Heart Rate: 120 bpm Rhythm: Normal IUP: Viable IUP Date of LMP: 12/17/2021 Beta HcG (if available): Not available at time of exam IMPRESSION: Single live intrauterine gestation with ultrasound age of 6 weeks 4 days by crown-rump length.
[2022-02-03 12:09] VITALS: BP 99/60; PULSE 55; RESP 18
[2022-02-03 12:11] LABS: HCG,Quantitative Serum 74849.9 mIU/mL
== END 2022-02-03 12:05 | disposition home or self-care (01) ==
LOC: EC 09:19
DX: O21.9 Vomiting of pregnancy, unspecified (principal); O99.281 Endocrine, nutritional and metabolic diseases complicating pregnancy, first trimester; O99.511 Diseases of the respiratory system complicating pregnancy, first trimester; E86.0 Dehydration; J45.909 Unspecified asthma, uncomplicated; Z87.891 Personal history of nicotine dependence; Z3A.01 Less than 8 weeks gestation of pregnancy
CPT/HCPCS: 36415; 80053; 83690; 85025; 81001; 84702; 76801; 99284; 96374; 96361; J2405

== ENCOUNTER 2024-10-01 09:05 | Emergency (ER) | payer OTHER ==
[2024-10-01 09:08] VITALS: TEMP 97.5
--- NOTE | 2024-10-01 09:23 | ED ---
Nausea/Vomiting/Diarrhea HPI - General Chief complaint: Nausea/Vomiting/Diarrhea Stated complaint: 10 wks preg, vomiting Time Seen by Provider: 10/01/24 09:08 Source: patient, RN notes reviewed Mode of arrival: ambulatory Limitations: no limitations - History of Present Illness Initial comments: This is a 28-year-old female who presents to the emergency department for vomiting. Patient is 10 weeks and . States that the nausea and vomiting started 2 days ago and she has been unable to keep anything down. Believes that it is related to morning sickness. She has her first appointment with Dr. Landeros, [facility] RN, later this month. She did have an ultrasound a few days ago that was normal. She called the [facility] RN office and they advised she come here for treatment. Denies having problems with morning sickness in her prior pregnancies. She had occasional upper abdominal cramping from the vomiting, however that has since resolved and she is not concerned about pain related to the baby. Denies any vaginal bleeding. Her largest concern is getting the vomiting under control so she can eat and make sure she does not become dehydrated. MD complaint: nausea, vomiting - Related Data Previous Rx's Medication Instructions Recorded Ondansetron Odt [Zofran Odt] 4 mg PO Q8HR PRN #10 tab 02/03/22 Metoclopramide [Reglan] 10 mg PO Q6H PRN #30 tab 10/01/24 Ondansetron Odt [Zofran Odt] 4 mg PO Q8HR PRN #20 tab 10/01/24 Allergies Allergy/AdvReac Type Severity Reaction Status Date / Time No Known Allergies Allergy Verified 02/03/22 10:11 Review of Systems ROS Statement: Those systems with pertinent positive or pertinent negative responses have been documented in the HPI. ROS Other: All systems not noted in ROS Statement are negative. Past Medical History Past Medical History: Asthma Additional Past Medical History / Comment(s): Obstetric history: This is her first and she's had care with me since the first trimester. Blood type is O+, antibodies negative, rubella immune, hepatitis B negative, RPR nonreactive, toxoplasma negative. History of Any Multi-Drug Resistant Organisms: None Reported Past Surgical History: No Surgical Hx Reported Past Anesthesia/Blood Transfusion Reactions: No Reported Reaction Past Psychological History: ADD/ADHD Smoking Status: Former smoker Past Alcohol Use History: None Reported Past Drug Use History: Marijuana - Past Family History Father Family Medical History: No Reported History General Exam Limitations: no limitations General appearance: alert, in no apparent distress Head exam: Present: atraumatic, normocephalic, normal inspection Respiratory exam: Present: normal lung sounds bilaterally. Absent: respiratory distress, wheezes, rales, rhonchi, stridor Cardiovascular Exam: Present: regular rate, normal rhythm Neurological exam: Present: alert, oriented X3, CN II-XII intact Psychiatric exam: Present: normal affect, normal mood Skin exam: Present: warm, dry, intact, normal color. Absent: rash Course Vital Signs 10/01/24 10/01/24 09:06 11:14 Temperature 97.5 F L Pulse Rate 83 74 Respiratory 16 18 Rate Blood Pressure 115/63 112/77 O2 Sat by Pulse 98 97 Oximetry Medical Decision Making - Medical Decision Making This is a 28-year-old female who presents to the emergency department for nausea and vomiting. Was pt. sent in by a medical professional or institution? @ -No Did you speak to anyone other than the patient for history? @ -No Did you review nursing and triage notes? @ -Yes, and I agree, it is accurate with regards to the patient's symptoms. Were old charts reviewed? @ -No Differential Diagnosis? @ -Differential Nausea and Vomiting: Gastroenteritis, cholecystitis, appendicitis, pancreatitis, migraine, benign positional vertigo, food borne illness, pyelonephritis, irritable bowel syndrome, influenza, Covid, GERD, incarcerated hernia, intestinal obstruction, this is not meant to be an all-inclusive list. EKG interpreted by me (3pts min.)? @ -Not obtained X-rays interpreted by me (1pt min.)? @ -Not obtained CT interpreted by me (1pt min.)? @ -Not obtained U/S interpreted by me (1pt. min.)? @ -Not obtained What testing was considered but not performed? (CT, X-rays, U/S, labs)? Why? @ -None What meds were considered but not given? Why? @ -None Did you discuss the management of the patient with other professionals? @ -No Did you reconcile home meds? @ -No Was smoking cessation discussed for >3mins.? @ -No Was critical care preformed (if so, how long)? @ -No Were there social determinants of health that impacted care today? How? (Homelessness, low income, unemployed, alcoholism, drug addiction, transportati on, low edu. Level, literacy, decrease access to med. care, fdc, rehab)? @ -No Was there de-escalation of care discussed even if they declined? (Discuss DNR or withdrawal of care, Hospice)? @ -No What co-morbidities impacted this encounter? (DM, HTN, Smoking, COPD, CAD, Cancer, CVA, Hep., AIDS, mental health diagnosis, sleep apnea, morbid obesity)? @ - Was patient admitted / discharged? @ -Discharged. Lab work unremarkable. Urinalysis negative for signs of infection. Patient given IV fluids, Reglan, Benadryl, and vitamin B6. She had substantial improvement in symptoms afterwards and was tolerating oral intake. Prescription for Reglan and Zofran provided with dosing instructions reviewed. Advised [id number] vitamin B6 and Unisom as the first-line treatment with the other prescriptions if that is not effective. She will otherwise follow-up with her [facility] RN as scheduled. Patient discharged home in stable condition. Case discussed with ED attending Dr. Muller. Return precautions reviewed in depth, the patient is instructed to return to the emergency department with any new, worsening, or concerning symptoms. Patient verbalized understanding. Undiagnosed new problem with uncertain prognosis? @ -None Drug Therapy requiring intensive monitoring for toxicity (Heparin, Nitro, Insulin, Cardizem)? @ -None Were any procedures done? @ -None Diagnosis/symptom? @ -Nausea and vomiting in Acute, or Chronic, or Acute on Chronic? @ -Acute Uncomplicated (without systemic symptoms) or Complicated (systemic symptoms)? @ -Uncomplicated Side effects of treatment? @ -None Exacerbation, Progression, or Severe Exacerbation] @ -Not applicable Poses a threat to life or bodily function? @ -No - Lab Data Result diagrams: 10/01/24 09:14 10/01/24 09:14 Lab Results 10/01/24 10/01/24 10/01/24 Range/Units 09:14 09:14 11:06 WBC 8.01 (4.50-10.00) 10*3/uL RBC 4.27 (4.10-5.20) 10*6/uL Hgb 12.2 (12.0-15.0) g/dL Hct 35.2 L (37.2-46.3) % MCV 82.4 (80.0-97.0) fL MCH 28.6 (27.0-32.0) pg MCHC 34.7 (32.0-37.0) g/dL Plt Count 286 (140-440) 10*3/uL MPV 11.0 (9.5-12.2) fL Immature Gran % (Auto) 0.4 % Neutrophils % 76.2 % Lymphocytes % 17.1 % Monocytes % 5.1 % Eosinophils % 0.7 % Basophils % 0.5 % Immature Gran # 0.03 (0.00-0.04) 10*3/uL Neutrophils # 6.10 (1.80-7.70) 10*3/uL Lymphocytes # 1.37 (0.90-5.00) 10*3/uL Monocytes # 0.41 (0.20-1.00) 10*3/uL Eosinophils # 0.06 (0.04-0.35) 10*3/uL Basophils # 0.04 (0.00-0.10) 10*3/uL Sodium 135 L (137-145) mmol/L Potassium 4.1 (3.5-5.1) mmol/L Chloride 105 (98-107) mmol/L Carbon Dioxide 20 L (22-30) mmol/L Anion Gap 10 mmol/L BUN 9 (7-17) mg/dL Creatinine 0.54 (0.52-1.04) mg/dL Est GFR (CKD-EPI)AfAm >90 (>60 ml/min/1.73 sqM) Est GFR (CKD-EPI)NonAf >90 (>60 ml/min/1.73 sqM) Glucose 91 (74-99) mg/dL Calcium 9.6 (8.4-10.2) mg/dL Total Bilirubin 0.5 (0.2-1.3) mg/dL AST 21 (14-36) U/L ALT 19 (4-34) U/L Alkaline Phosphatase 44 (38-126) U/L Total Protein 7.6 (6.3-8.2) g/dL Albumin 4.3 (3.5-5.0) g/dL Lipase 92 (23-300) U/L HCG, Quant 025686.0 mIU/mL Urine Color Colorless Urine Appearance Clear (Clear) Urine pH 5.5 (5.0-8.0) Ur Specific [place] 1.011 (1.001-1.035) Urine Protein Negative (Negative) Urine Glucose (UA) Negative (Negative) Urine Ketones 1+ H (Negative) Urine Blood Negative (Negative) Urine Nitrite Negative (Negative) Urine Bilirubin Negative (Negative) Urine Urobilinogen <2.0 (<2.0) mg/dL Ur Leukocyte Esterase Negative (Negative) Disposition Clinical Impression: Nausea and vomiting during Disposition: HOME SELF-CARE Instructions (If sedation given, give patient instructions): Nausea and Vomiting in (ED) Additional Instructions: Return to the emergency department with any new, worsening, or concerning symptoms. You can take the Reglan up to every 6 hours as needed for nausea and vomiting. If that is not effective, you can take the Zofran up to every 8 hours for nausea and vomiting. You can also try the combination of over the counter vitamin B6 and Unisom. Prescriptions: Metoclopramide [Reglan] 10 mg PO Q6H PRN #30 tab PRN Reason: Nausea And Vomiting Ondansetron Odt [Zofran Odt] 4 mg PO Q8HR PRN #20 tab PRN Reason: Nausea And Vomiting Is patient prescribed a controlled substance at d/c from ED?: No Referrals: None,Stated [Primary Care Provider] - 1-2 days Time of Disposition: 11:03
[2024-10-01] MEDS: METOCLOPRAMIDE 5 MG/ML 2 ML VIAL IVP STA (09:29)
[2024-10-01] MEDS: diphenhydrAMINE 50 MG/ML 1 ML VIAL IVP STA (09:29)
[2024-10-01] MEDS: SODIUM CHLORIDE 0.9% 1,000 ML IV SCH (09:30)
[2024-10-01] MEDS: PYRIDOXINE 100 MG/ML 1 ML VIAL IVP STA (09:34)
[2024-10-01 09:43] LABS: Basophils # (A) 0.04 10*3/uL (0.00-0.10); Basophils % (A) 0.5 %; Eosinophils # (A) 0.06 10*3/uL (0.04-0.35); Eosinophils % (A) 0.7 %; HCT 35.2 % (37.2-46.3); HGB 12.2 g/dL (12.0-15.0); Lymphocytes # (A) 1.37 10*3/uL (0.90-5.00); Lymphocytes % (A) 17.1 %; MCH 28.6 pg (27.0-32.0); MCHC 34.7 g/dL (32.0-37.0); MCV 82.4 fL (80.0-97.0); Monocytes # (A) 0.41 10*3/uL (0.20-1.00); Monocytes % (A) 5.1 %; Neutrophils % (A) 76.2 %; Platelet Count 286 10*3/uL (140-440); RBC 4.27 10*6/uL (4.10-5.20); RDW 12.9 % (11.5-14.5); WBC 8.01 10*3/uL (4.50-10.00)
[2024-10-01 10:00] LABS: ALT 19 U/L (4-34); AST 21 U/L (14-36); African American GFR (CKD) >90 (>60 ml/min/1.73 sqM); Albumin 4.3 g/dL (3.5-5.0); Alkaline Phosphatase 44 U/L (38-126); Anion Gap 10 mmol/L; Blood Urea Nitrogen 9 mg/dL (7-17); Calcium 9.6 mg/dL (8.4-10.2); Carbon Dioxide 20 mmol/L (22-30); Chloride 105 mmol/L (98-107); Glucose 91 mg/dL (74-99); Lipase 92 U/L (23-300); Non-African American GFR(CKD) >90 (>60 ml/min/1.73 sqM); Potassium 4.1 mmol/L (3.5-5.1); Sodium 135 mmol/L (137-145); Total Bilirubin 0.5 mg/dL (0.2-1.3); Total Protein 7.6 g/dL (6.3-8.2)
[2024-10-01 11:15] VITALS: BP 112/77; PULSE 74; RESP 18
[2024-10-01 11:44] LABS: Appearance,Urine Clear (Clear); Bilirubin,Urine Negative (Negative); Blood,Urine Negative (Negative); Color,Urine Colorless; Glucose,Urine (UA) Negative (Negative); Ketones,Urine 1+ (Negative); Leukocyte Esterase,Urine Negative (Negative); Nitrite,Urine Negative (Negative); PH, Urine 5.5 (5.0-8.0); Protein,Urine Negative (Negative); Specific Gravity,Urine 1.011 (1.001-1.035); Urobilinogen,Urine <2.0 mg/dL (<2.0)
== END 2024-10-01 11:15 | disposition home or self-care (01) ==
LOC: EC 09:05
DX: O21.9 Vomiting of pregnancy, unspecified (principal); Z87.891 Personal history of nicotine dependence; Z3A.10 10 weeks gestation of pregnancy
CPT/HCPCS: 36415; 80053; 83690; 85025; 81003; 84702; 99284; 96374; 96375; 96361; J1200; J3415; J2765

== ENCOUNTER 2024-12-28 15:15 | Emergency (ER) | payer OTHER ==
[2024-12-28 15:26] VITALS: RESP 20
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
[2024-12-28 15:48] LABS: Bilirubin,Urine Negative (Negative); Blood,Urine Negative (Negative); Color,Urine Yellow; Glucose,Urine (UA) Negative (Negative); Ketones,Urine Negative (Negative); Leukocyte Esterase,Urine Negative (Negative); Nitrite,Urine Negative (Negative); PH, Urine 7.5 (5.0-8.0); Protein,Urine Negative (Negative); Specific Gravity,Urine 1.023 (1.001-1.035); Urobilinogen,Urine <2.0 mg/dL (<2.0)
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
[2024-12-28 18:12] VITALS: BP 100/64; PULSE 95; TEMP 98
== END 2024-12-28 18:12 | disposition home or self-care (01) ==
LOC: EC 15:15
DX: O26.892 Other specified pregnancy related conditions, second trimester (principal); Z87.891 Personal history of nicotine dependence; V89.2XXA Person injured in unspecified motor-vehicle accident, traffic, initial encounter; Y92.410 Unspecified street and highway as the place of occurrence of the external cause; Z3A.22 22 weeks gestation of pregnancy
CPT/HCPCS: 76805; 81003; 99284

== ENCOUNTER 2025-01-14 08:42 | Emergency (ER) | payer OTHER ==
[2025-01-14 09:18] LABS: Basophils # (A) 0.02 10*3/uL (0.00-0.10); Basophils % (A) 0.4 %; Eosinophils # (A) 0.02 10*3/uL (0.04-0.35); Eosinophils % (A) 0.4 %; HCT 32.3 % (37.2-46.3); HGB 11.2 g/dL (12.0-15.0); Lymphocytes # (A) 1.27 10*3/uL (0.90-5.00); Lymphocytes % (A) 25.6 %; MCH 29.2 pg (27.0-32.0); MCHC 34.7 g/dL (32.0-37.0); MCV 84.1 fL (80.0-97.0); Monocytes # (A) 0.40 10*3/uL (0.20-1.00); Monocytes % (A) 8.1 %; Neutrophils # (A) 3.22 10*3/uL (1.80-7.70); Neutrophils % (A) 64.9 %; Platelet Count 257 10*3/uL (140-440); RBC 3.84 10*6/uL (4.10-5.20); RDW 13.7 % (11.5-14.5); WBC 4.96 10*3/uL (4.50-10.00)
[2025-01-14 09:30] LABS: ALT 32 U/L (4-34); AST 38 U/L (14-36); African American GFR (CKD) >90 (>60 ml/min/1.73 sqM); Albumin 3.5 g/dL (3.5-5.0); Alkaline Phosphatase 72 U/L (38-126); Anion Gap 10 mmol/L; Blood Urea Nitrogen 6 mg/dL (7-17); Calcium 8.6 mg/dL (8.4-10.2); Carbon Dioxide 21 mmol/L (22-30); Chloride 107 mmol/L (98-107); Glucose 74 mg/dL (74-99); Non-African American GFR(CKD) >90 (>60 ml/min/1.73 sqM); Potassium 3.4 mmol/L (3.5-5.1); Sodium 138 mmol/L (137-145); Total Protein 6.4 g/dL (6.3-8.2)
[2025-01-14] MEDS: ONDANSETRON 4 MG/2 ML VIAL IVP STA (09:32)
[2025-01-14] MEDS: SODIUM CHLORIDE 0.9% 1,000 ML IV ONE (09:32)
[2025-01-14 09:47] LABS: HCG,Quantitative Serum 8683.7 mIU/mL
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
--- NOTE | 2025-01-14 10:04 | ED ---
Nausea/Vomiting/Diarrhea HPI - General Chief complaint: Nausea/Vomiting/Diarrhea Stated complaint: 24 wks, nausea, vomiting Time Seen by Provider: 01/14/25 10:03 Source: patient, family, RN notes reviewed, old records reviewed Mode of arrival: ambulatory Limitations: no limitations - History of Present Illness Initial comments: 29-year-old G3, female approximately 24 weeks gestation presented to the ER for evaluation of nausea and vomiting. Patient states she has had intermittent nausea and vomiting throughout this . She reports since Monday she has felt unwell with nausea, vomiting and diarrhea. She does report her son had similar symptoms over the weekend and she believes she may have caught a virus from him. Patient reports nausea and vomiting have persisted. She denies any hematemesis, coffee-ground emesis, hematochezia or melena. Patient reports she is able to keep solids and liquids down occasionally. John wiseman was evaluated at urgent care yesterday and discharged with Zofran. She states she has taken this along with Pepcid with continued nausea. Patient mitts to movement and denies any abdominal pain or vaginal bleeding or discharge. No dysuria or increased urinary frequency. Patient is following up with Dr. Winkler. - Related Data Home Medications Medication Instructions Recorded Confirmed Aspirin EC [Ecotrin Low Dose] 81 mg PO HS 01/14/25 01/14/25 Famotidine [Pepcid] 40 mg PO DAILY 01/14/25 01/14/25 Ondansetron Odt [Zofran Odt] 4 mg PO Q6H PRN 01/14/25 01/14/25 Dvc-Aalh-Orsmb Acid 1 cap PO HS 01/14/25 01/14/25 [-U Capsule (formulary)] Previous Rx's Medication Instructions Recorded Pyridoxine HCl (Vitamin B6) 10 mg PO Q8HR PRN #15 tab 01/14/25 [Vitamin B-6] Allergies Allergy/AdvReac Type Severity Reaction Status Date / Time No Known Allergies Allergy Verified 01/14/25 10:59 Review of Systems ROS Statement: Those systems with pertinent positive or pertinent negative responses have been documented in the HPI. ROS Other: All systems not noted in ROS Statement are negative. Past Medical History Past Medical History: Asthma Additional Past Medical History / Comment(s): Obstetric history: This is her first and she's had care with me since the first trimester. Blood type is O+, antibodies negative, rubella immune, hepatitis B negative, RPR nonreactive, toxoplasma negative. History of Any Multi-Drug Resistant Organisms: None Reported Past Surgical History: No Surgical Hx Reported Past Anesthesia/Blood Transfusion Reactions: No Reported Reaction Past Psychological History: ADD/ADHD Smoking Status: Former smoker Past Alcohol Use History: None Reported Past Drug Use History: Marijuana - Past Family History Father Family Medical History: No Reported History General Exam Limitations: no limitations General appearance: alert, in no apparent distress Respiratory exam: Present: normal lung sounds bilaterally. Absent: respiratory distress, wheezes, rales, rhonchi, stridor Cardiovascular Exam: Present: regular rate, normal rhythm, normal heart sounds. Absent: systolic murmur, diastolic murmur, rubs, gallop, clicks GI/Abdominal exam: Present: soft (Gravid abdomen-uterus fundus palpated above umbilicus), normal bowel sounds Extremities exam: Present: normal inspection, full ROM, normal capillary refill. Absent: tenderness, pedal edema, joint swelling, calf tenderness Neurological exam: Present: alert, oriented X3, CN II-XII intact Skin exam: Present: warm, dry, intact, normal color. Absent: rash Course Vital Signs 01/14/25 01/14/25 01/14/25 08:44 10:40 12:25 Temperature 97.6 F 98.0 F Pulse Rate 82 80 74 Respiratory 18 18 20 Rate Blood Pressure 112/67 116/64 115/70 O2 Sat by Pulse 98 98 99 Oximetry Medical Decision Making - Medical Decision Making Was pt. sent in by a medical professional or institution (, PA, GROUND CONTROL APPROACH TECHNICIAN, urgent care, hospital, or [facility]...) When possible be specific @ -No Did you speak to anyone other than the patient for history (EMS, parent, family, police, friend...)? What history was obtained from this source @ -No Did you review nursing and triage notes (agree or disagree)? Why? @ -I reviewed and agree with nursing and triage notes Were old charts reviewed (outside hosp., previous admission, EMS record, old EKG, old radiological studies, urgent care reports/EKG's, [facility] records)? Report findings @ -No old charts were reviewed Differential Diagnosis (chest pain, altered mental status, abdominal pain women, abdominal pain men, vaginal bleeding, weakness, fever, dyspnea, syncope, headache, dizziness, GI bleed, back pain, seizure, CVA, palpatations, mental health, musculoskeletal)? @ -Hyperemesis syndrome, gastroenteritis, UTI, electrolyte abnormality... This list is not meant to be all-inclusive. EKG interpreted by me (3pts min.). @ -None done X-rays interpreted by me (1pt min.). @ -None done CT interpreted by me (1pt min.). @ -None done U/S interpreted by me (1pt. min.). @ -Limited ultrasound showing heart tones measuring 142 bpm. What testing was considered but not performed or refused? (CT, X-rays, U/S, labs)? Why? @ -None What meds were considered but not given or refused? Why? @ -None Did you discuss the management of the patient with other professionals (professionals i.e. , PA, GROUND CONTROL APPROACH TECHNICIAN, lab, RT, psych nurse, social security benefits interviewer, wax molder, teacher, chief lending officer, case loader operator)? Give summary @ -No Was smoking cessation discussed for >3mins.? @ -No Was critical care preformed (if so, how long)? @ -No Were there social determinants of health that impacted care today? How? (Homelessness, low income, unemployed, alcoholism, drug addiction, transportation, low edu. Level, literacy, decrease access to med. care, long-term, rehab)? @ -No Was there de-escalation of care discussed even if they declined (Discuss DNR or withdrawal of care, Hospice)? DNR status @ -No What co-morbidities impacted this encounter? (DM, HTN, Smoking, COPD, CAD, Cancer, CVA, ARF, Chemo, Hep., AIDS, mental health diagnosis, sleep apnea, morbid obesity)? @ - Was patient admitted / discharged? Hospital course, mention meds given and route, prescriptions, significant lab abnormalities, going to OR and other pertinent info. @ -Discharge. 29-year-old G3, approximately 24 weeks gestation female presented to the ER for evaluation of nausea and vomiting. Vital signs stable. Patient no signs of acute distress nontoxic-appearing. Patient denying any abdominal pain/cramping or vaginal bleeding/discharge. Laboratory studies obtained remarkable for WBC 4.96. Hemoglobin 11.2. Potassium 3.4. hCG 8683.7. Urinalysis unremarkable. ultrasound showing cardiac to be at 142 bpm. Vital signs negative. Patient provided with symptomatic treatment in the emergency department with IV fluids and Zofran. Upon reevaluation, patient educated on today's findings. Patient requesting food for which luigi crackers were provided. Patient is tolerating oral intake and will be discharged in stable condition. Pyroxidine prescribed as the patient reports she has a full prescription of Zofran from urgent care yesterday. Patient states she has follow-up with ELL TEACHER, , in 2 days. I advised her to continue taking and follow-up closely with ELL TEACHER. Strict return parameters discussed. Patient discharged stable condition. Patient verbally expressed understanding agreement care plan. Case discussed with commercial service technician, Dr. Julien. Undiagnosed new problem with uncertain prognosis? @ -No Drug Therapy requiring intensive monitoring for toxicity (Heparin, Nitro, Insulin, Cardizem)? @ -No Were any procedures done? @ -No Diagnosis/symptom? @ -Nausea and vomiting in Acute, or Chronic, or Acute on Chronic? @ -Acute Uncomplicated (without systemic symptoms) or Complicated (systemic symptoms)? @ -Uncomplicated Side effects of treatment? @ -No Exacerbation, Progression, or Severe Exacerbation? @ -No Poses a threat to life or bodily function? How? (Chest pain, [place], [place], pneumonia, PE, COPD, DKA, ARF, appy, cholecystitis, CVA, Diverticulitis, Homicidal, Suicidal, threat to staff... and all critical care pts) @ -No - Lab Data Result diagrams: 01/14/25 09:07 01/14/25 09:07 Lab Results 01/14/25 01/14/25 01/14/25 Range/Units 09:07 09:07 09:45 WBC 4.96 (4.50-10.00) 10*3/uL RBC 3.84 L (4.10-5.20) 10*6/uL Hgb 11.2 L (12.0-15.0) g/dL Hct 32.3 L (37.2-46.3) % MCV 84.1 (80.0-97.0) fL MCH 29.2 (27.0-32.0) pg MCHC 34.7 (32.0-37.0) g/dL Plt Count 257 (140-440) 10*3/uL MPV 11.1 (9.5-12.2) fL Immature Gran % (Auto) 0.6 % Neutrophils % 64.9 % Lymphocytes % 25.6 % Monocytes % 8.1 % Eosinophils % 0.4 % Basophils % 0.4 % Immature Gran # 0.03 (0.00-0.04) 10*3/uL Neutrophils # 3.22 (1.80-7.70) 10*3/uL Lymphocytes # 1.27 (0.90-5.00) 10*3/uL Monocytes # 0.40 (0.20-1.00) 10*3/uL Eosinophils # 0.02 L (0.04-0.35) 10*3/uL Basophils # 0.02 (0.00-0.10) 10*3/uL Sodium 138 (137-145) mmol/L Potassium 3.4 L (3.5-5.1) mmol/L Chloride 107 (98-107) mmol/L Carbon Dioxide 21 L (22-30) mmol/L Anion Gap 10 mmol/L BUN 6 L (7-17) mg/dL Creatinine 0.48 L (0.52-1.04) mg/dL Est GFR (CKD-EPI)AfAm >90 (>60 ml/min/1.73 sqM) Est GFR (CKD-EPI)NonAf >90 (>60 ml/min/1.73 sqM) Glucose 74 (74-99) mg/dL Calcium 8.6 (8.4-10.2) mg/dL Total Bilirubin 0.4 (0.2-1.3) mg/dL AST 38 H (14-36) U/L ALT 32 (4-34) U/L Alkaline Phosphatase 72 (38-126) U/L Total Protein 6.4 (6.3-8.2) g/dL Albumin 3.5 (3.5-5.0) g/dL HCG, Quant 8683.7 mIU/mL Urine Color Yellow Urine Appearance Clear (Clear) Urine pH 6.0 (5.0-8.0) Ur Specific [place] 1.012 (1.001-1.035) Urine Protein Negative (Negative) Urine Glucose (UA) Negative (Negative) Urine Ketones Negative (Negative) Urine Blood Negative (Negative) Urine Nitrite Negative (Negative) Urine Bilirubin Negative (Negative) Urine Urobilinogen <2.0 (<2.0) mg/dL Ur Leukocyte Esterase Negative (Negative) Influenza Type A (PCR) (Not Detectd) Influenza Type B (PCR) (Not Detectd) RSV (PCR) (Not Detectd) SARS-CoV-2 (PCR) (Not Detectd) 01/14/25 Range/Units 10:38 WBC (4.50-10.00) 10*3/uL RBC (4.10-5.20) 10*6/uL Hgb (12.0-15.0) g/dL Hct (37.2-46.3) % MCV (80.0-97.0) fL MCH (27.0-32.0) pg MCHC (32.0-37.0) g/dL Plt Count (140-440) 10*3/uL MPV (9.5-12.2) fL Immature Gran % (Auto) % Neutrophils % % Lymphocytes % % Monocytes % % Eosinophils % % Basophils % % Immature Gran # (0.00-0.04) 10*3/uL Neutrophils # (1.80-7.70) 10*3/uL Lymphocytes # (0.90-5.00) 10*3/uL Monocytes # (0.20-1.00) 10*3/uL Eosinophils # (0.04-0.35) 10*3/uL Basophils # (0.00-0.10) 10*3/uL Sodium (137-145) mmol/L Potassium (3.5-5.1) mmol/L Chloride (98-107) mmol/L Carbon Dioxide (22-30) mmol/L Anion Gap mmol/L BUN (7-17) mg/dL Creatinine (0.52-1.04) mg/dL Est GFR (CKD-EPI)AfAm (>60 ml/min/1.73 sqM) Est GFR (CKD-EPI)NonAf (>60 ml/min/1.73 sqM) Glucose (74-99) mg/dL Calcium (8.4-10.2) mg/dL Total Bilirubin (0.2-1.3) mg/dL AST (14-36) U/L ALT (4-34) U/L Alkaline Phosphatase (38-126) U/L Total Protein (6.3-8.2) g/dL Albumin (3.5-5.0) g/dL HCG, Quant mIU/mL Urine Color Urine Appearance (Clear) Urine pH (5.0-8.0) Ur Specific [place] (1.001-1.035) Urine Protein (Negative) Urine Glucose (UA) (Negative) Urine Ketones (Negative) Urine Blood (Negative) Urine Nitrite (Negative) Urine Bilirubin (Negative) Urine Urobilinogen (<2.0) mg/dL Ur Leukocyte Esterase (Negative) Influenza Type A (PCR) Not Detected (Not Detectd) Influenza Type B (PCR) Not Detected (Not Detectd) RSV (PCR) Not Detected (Not Detectd) SARS-CoV-2 (PCR) Not Detected (Not Detectd) - Radiology Data Radiology results: report reviewed, image reviewed Disposition Clinical Impression: Nausea and vomiting in Disposition: HOME SELF-CARE Condition: Stable Instructions (If sedation given, give patient instructions): Acute Nausea and Vomiting (ED) Additional Instructions: Follow-up with ELL TEACHER. Return to the ER for any new or worsening concerns. Continue . Prescriptions: Pyridoxine HCl (Vitamin B6) [Vitamin B-6] 10 mg PO Q8HR PRN #15 tab PRN Reason: Nausea And Vomiting Is patient prescribed a controlled substance at d/c from ED?: No Referrals: None,Stated [Primary Care Provider] - 1-2 days Leandro Winkler MD [STAFF PHYSICIAN] - 1-2 days Time of Disposition: 12:05
[2025-01-14 11:18] LABS: RSV Not Detected (Not Detectd)
[2025-01-14 11:38] LABS: Bilirubin,Urine Negative (Negative); Blood,Urine Negative (Negative); Color,Urine Yellow; Glucose,Urine (UA) Negative (Negative); Ketones,Urine Negative (Negative); Leukocyte Esterase,Urine Negative (Negative); Nitrite,Urine Negative (Negative); PH, Urine 6.0 (5.0-8.0); Protein,Urine Negative (Negative); Specific Gravity,Urine 1.012 (1.001-1.035); Urobilinogen,Urine <2.0 mg/dL (<2.0)
[2025-01-14 12:31] VITALS: BP 115/70; PULSE 74; RESP 20; TEMP 98
== END 2025-01-14 12:25 | disposition home or self-care (01) ==
LOC: EC 08:42
DX: O21.2 Late vomiting of pregnancy (principal); Z87.891 Personal history of nicotine dependence; Z3A.24 24 weeks gestation of pregnancy
CPT/HCPCS: 36415; 80053; 85025; 81003; 84702; 87636; 76815; 99284; 96374; 96361; J2405